=== PATIENT | male | born 1960 | race Caucasian/White ===

== ENCOUNTER 2016-03-31 15:45 | Emergency (ER) | payer MEDICARE, MEDICAID ==
[2016-03-31] MEDS ORDERED: SODIUM CHLORIDE 0.9% 2,000 ML IV ONE (16:13)
== END 2016-03-31 19:00 | disposition home or self-care (01) ==
DX: E86.0 Dehydration (principal); J11.1 Influenza due to unidentified influenza virus with other respiratory manifestations; R19.7 Diarrhea, unspecified; E10.9 Type 1 diabetes mellitus without complications; Z79.4 Long term (current) use of insulin; E03.9 Hypothyroidism, unspecified; I25.2 Old myocardial infarction; Z79.82 Long term (current) use of aspirin; F17.200 Nicotine dependence, unspecified, uncomplicated

== ENCOUNTER 2016-06-09 08:58 | Outpatient (CLI) | payer MEDICARE, MEDICAID | END 2016-06-09 08:59 | disposition home or self-care (01) | DX: E10.42 Type 1 diabetes mellitus with diabetic polyneuropathy (principal) ==

== ENCOUNTER 2016-06-14 13:41 | Outpatient (CLI) | payer MEDICARE, MEDICAID | END 2016-06-14 13:42 | disposition home or self-care (01) | DX: G47.33 Obstructive sleep apnea (adult) (pediatric) (principal) | CPT/HCPCS: 99205; G0463 ==

== ENCOUNTER 2016-07-05 19:27 | Outpatient (CLI) | payer MEDICARE, MEDICAID | END 2016-07-05 19:28 | disposition home or self-care (01) | DX: G47.33 Obstructive sleep apnea (adult) (pediatric) (principal) ==

== ENCOUNTER 2016-07-29 11:28 | Outpatient (CLI) | payer MEDICARE, MEDICAID | END 2016-07-29 11:29 | disposition home or self-care (01) | DX: R97.20 Elevated prostate specific antigen [PSA] (principal) ==

== ENCOUNTER 2016-08-02 13:01 | Outpatient (CLI) | payer MEDICARE, MEDICAID | END 2016-08-02 13:02 | disposition home or self-care (01) | DX: G47.33 Obstructive sleep apnea (adult) (pediatric) (principal) | CPT/HCPCS: 99213; G0463 ==

== ENCOUNTER 2016-08-26 09:56 | Outpatient (CLI) | payer MEDICARE, MEDICAID | END 2016-08-26 09:57 | disposition home or self-care (01) | LOC: LAB 09:56 | PROVIDERS: ATTEND Urology | DX: E29.1 Testicular hypofunction (principal) | CPT/HCPCS: 36415; 84403 ==

== ENCOUNTER 2016-08-28 19:41 | Outpatient (CLI) | payer MEDICARE, MEDICAID | END 2016-08-28 19:42 | disposition home or self-care (01) | LOC: SC 19:41 | PROVIDERS: ATTEND Internal Medicine Pulmonary Disease | DX: G47.33 Obstructive sleep apnea (adult) (pediatric) (principal); G47.61 Periodic limb movement disorder; Z68.42 Body mass index [BMI] 45.0-49.9, adult | CPT/HCPCS: 95810 ==

== ENCOUNTER 2016-09-07 11:18 | Outpatient (CLI) | payer MEDICARE, MEDICAID ==
[2016-09-07 12:33] LABS: PROLACTIN 20.55 ng/mL
[2016-09-07 12:57] LABS: LUTEINIZING HORMONE 4.94 mIU/mL
== END 2016-09-07 11:19 | disposition home or self-care (01) ==
LOC: LAB 11:18
PROVIDERS: ATTEND Urology
DX: E29.1 Testicular hypofunction (principal)
CPT/HCPCS: 36415; 82670; 83002; 84146

== ENCOUNTER 2016-09-20 11:12 | Outpatient (CLI) | payer MEDICARE, MEDICAID | END 2016-09-20 11:13 | disposition home or self-care (01) | LOC: SC 11:12 | PROVIDERS: ATTEND Specialist | DX: G47.33 Obstructive sleep apnea (adult) (pediatric) (principal); G25.81 Restless legs syndrome | CPT/HCPCS: 99214; G0463; 99212 ==

== ENCOUNTER 2016-11-01 13:11 | Outpatient (CLI) | payer MEDICARE, MEDICAID | END 2016-11-01 13:12 | disposition home or self-care (01) | LOC: SC 13:11 | PROVIDERS: ATTEND Specialist | DX: G47.33 Obstructive sleep apnea (adult) (pediatric) (principal) | CPT/HCPCS: 99213; G0463; 99212 ==